=== PATIENT | male | born 2000 | race Caucasian/White ===

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

== ENCOUNTER 2021-02-11 19:09 | Emergency (ER) | payer MEDICAID ==
[~2021-02-11] VITALS: Ht 177.8 cm; Wt 88.5 kg
[2021-02-11 20:10] VITALS: BP 143/77
[2021-02-11 21:36] LABS: Basophils # (auto) 0.1 10 ^3/uL (0-0.2); Eosinophils # (auto) 0 10 ^3/uL (0-0.8); Eosinophils % (auto) 0.2 % (0.0-7.0); Hemoglobin 13.2 g/dL (13.5-17.5); Lymphocytes # (auto) 1.6 10 ^3/uL (0.4-5.4); Lymphocytes % (auto) 15.8 % (10.0-50.0); Mean Corpuscular Hemoglobin 26.2 pg (28.0-32.0); Mean Corpuscular Volume 79.3 fL (80.0-100.0); Monocytes # (auto) 0.9 10 ^3/uL (0-1.3); Monocytes % (auto) 8.6 % (0.0-12.0); Neutrophils # (auto) 7.5 10 ^3/uL (1.6-8.6); Neutrophils % (auto) 74.4 % (37.0-80.0); Red Blood Cells 5.04 10^6/uL (4.5-5.90); Red Cell Distribution Width 15.7 % (11.8-14.3)
== END 2021-02-12 05:00 | disposition home or self-care (01) ==
LOC: ER 19:09
DX: J03.90 Acute tonsillitis, unspecified (principal); J20.9 Acute bronchitis, unspecified; G89.29 Other chronic pain; M54.50 Low back pain, unspecified; Z20.822 Contact with and (suspected) exposure to COVID-19
CPT/HCPCS: 36415; 71046; 85025; 87426

== ENCOUNTER 2021-03-08 13:04 | Inpatient (IN) | payer MEDICAID ==
[~2021-03-08] VITALS: Ht 180.3 cm; Wt 84.0 kg
[2021-03-08] MEDS ORDERED: CLINDAMYCIN 900MG IV 50 ML IV ONE (15:45)
[2021-03-08] MEDS ORDERED: cefTRIAXone 1GM/50ML D5W 50 ML IV ONE (15:45)
[2021-03-08] MEDS ORDERED: VANCOMYCIN 1GM/250ML 250 ML IV ONE (16:30)
[2021-03-08 17:26] LABS: Basophils # (auto) 0.1 10 ^3/uL (0-0.2); Lymphocytes # (auto) 1.8 10 ^3/uL (0.4-5.4); Nucleated Red Blood Cells % 0.1 %
[2021-03-08 17:28] LABS: Basophils % (auto) 1.5 % (0.0-2.0); Eosinophils # (auto) 0 10 ^3/uL (0-0.8); Eosinophils % (auto) 0.5 % (0.0-7.0); Hematocrit 39.6 % (41.0-53.0); Hemoglobin 13.1 g/dL (13.5-17.5); Lymphocytes % (auto) 24.6 % (10.0-50.0); Mean Corpuscular Hemoglobin 26.2 pg (28.0-32.0); Mean Corpuscular Hgb Conc. 33.1 g/dL (32.0-36.0); Mean Corpuscular Volume 79.1 fL (80.0-100.0); Monocytes # (auto) 0.5 10 ^3/uL (0-1.3); Monocytes % (auto) 7.1 % (0.0-12.0); Neutrophils % (auto) 66.3 % (37.0-80.0); Red Blood Cells 5.01 10^6/uL (4.5-5.90); Red Cell Distribution Width 15.5 % (11.8-14.3); White Blood Cell 7.5 10^3/uL (4.4-10.8)
[2021-03-08] MEDS ORDERED: ACETAMINOPHEN/CODEINE#3 (300/30mg) TAB PO ONE (17:30)
[2021-03-08] MEDS ORDERED: ONDANSETRON ODT 4 MG TAB PO ONE (17:30)
[2021-03-08 17:43] LABS: Albumin 3.9 g/dL (3.4-5.0); Calcium 9.3 mg/dL (8.5-10.1); Potassium 3.8 mmol/L (3.5-5.1)
[2021-03-08 17:46] LABS: BUN/Creatinine Ratio 11.1; Bilirubin, Total 0.2 mg/dL (0.2-1.0); Total Protein 8.1 g/dL (6.4-8.2)
[2021-03-08 20:29] LABS: INR 1.01 (0.9-1.15); Partial Thromboplastin Time 32.5 sec (23.6-33.0)
[2021-03-08] MEDS ORDERED: ONDANSETRON HCL 4 MG/2 ML VIAL IV ONE (21:30)
[2021-03-08] MEDS ORDERED: MORPHINE SULFATE 4 MG/ML SYR/VIAL IV ONE (21:30)
[2021-03-08] MEDS ORDERED: VANCOMYCIN PER PHARMACY 0 MG IV SCH (21:45)
[2021-03-08] MEDS ORDERED: ACETAMINOPHEN 325 MG TAB PO PRN (21:45)
[2021-03-08] MEDS ORDERED: hydrALAZINE HCL 10 MG TAB PO PRN (21:45)
[2021-03-08] MEDS ORDERED: ONDANSETRON HCL 4 MG/2 ML VIAL IV PRN (21:45)
[2021-03-09] VITALS (8 sets, daily range): BP systolic 103–155; BP diastolic 41–82
[2021-03-09] MEDS: MORPHINE SULFATE INJECTION 2 MG/ML SYRG IV PRN ×2 (05:30→20:55)
[2021-03-09] MEDS ORDERED: VANCOMYCIN 1GM/250ML 250 ML IV ONE (06:00)
[2021-03-09] MEDS: HYDROcodone-ACET 5/325MG TAB PO PRN ×3 (09:00→21:51)
[2021-03-09] MEDS ORDERED: cefTRIAXone 1GM/50ML D5W 50 ML IV SCH (10:00)
[2021-03-09] MEDS: VANCOMYCIN 1GM/250ML 250 ML IV SCH ×2 (13:54→21:48)
[2021-03-10 05:00] VITALS: BP 104/62
[2021-03-10] MEDS: VANCOMYCIN 1GM/250ML 250 ML IV SCH ×3 (06:14→21:05)
[2021-03-10] MEDS ORDERED: BUPIVACAINE 0.5% MPF INJ 30ML SDV IJ ONE (06:43)
[2021-03-10] MEDS ORDERED: LIDOCAINE 1% HCL (LOCAL ANESTH.) INJ 20ML MDV ONE (06:43)
[2021-03-10] MEDS ORDERED: fentaNYL CITRATE 100 MCG/2 ML VL ONE (08:09)
[2021-03-10] MEDS ORDERED: MIDAZOLAM HCL 2MG/2ML 2ml VIAL (1mg/ml) ONE (09:29)
[2021-03-10] MEDS ORDERED: LIDOCAINE 2% (LOCAL ANESTH.) PF 5ml SDV ONE (09:29)
[2021-03-10] MEDS ORDERED: PROPOFOL 10 MG/ML 20 ML IV ONE (09:29)
[2021-03-10] MEDS ORDERED: ONDANSETRON HCL 4 MG/2 ML VIAL ONE (09:29)
[2021-03-10] MEDS ORDERED: ONDANSETRON HCL 4 MG/2 ML VIAL IV PRN (09:30)
[2021-03-10] MEDS: HYDROmorphone HCL 2 MG/ML VL IV PRN ×4 (09:35→10:05)
[2021-03-10] MEDS: MORPHINE SULFATE INJECTION 2 MG/ML SYRG IV PRN ×3 (10:26→22:01)
[2021-03-10] MEDS: CEFTRIAXONE SODIUM 2 GM in D5W 5% 50 ML IV SCH (11:11)
[2021-03-10 12:32] LABS: Urine Bacteria NONE SEEN /hpf (None Seen); Urine Blood Negative /uL (Negative); Urine Specific Gravity 1.015 (1.001-1.035); Urine WBC 2 /hpf (0 - 3)
[2021-03-10 12:41] LABS: Amphetamine Screen, Urine NEGATIVE (NEGATIVE); Barbiturate Scree,Urine NEGATIVE (NEGATIVE); Benzodiazephine Screen, Urine POSITIVE (NEGATIVE); Cannabinoid Screen, Urine NEGATIVE (NEGATIVE); Cocaine Screen, Urine NEGATIVE (NEGATIVE); Opiate Scree,Urine POSITIVE (NEGATIVE); Phencyclidine Screen, Urine NEGATIVE (NEGATIVE)
[2021-03-10 13:00] VITALS: BP 146/84
[2021-03-10] MEDS: HYDROcodone-ACET 5/325MG TAB PO PRN ×2 (13:07→19:35)
[2021-03-10] MEDS ORDERED: ACET325T10 PO (14:07)
[2021-03-10] MEDS ORDERED: HYDR1TAB97 PO (14:07)
[2021-03-10 17:00] VITALS: BP 139/85
[2021-03-10 22:00] VITALS: BP 120/73
[2021-03-11] MEDS: HYDROcodone-ACET 5/325MG TAB PO PRN ×4 (01:30→20:47)
[2021-03-11] MEDS: MORPHINE SULFATE INJECTION 2 MG/ML SYRG IV PRN ×4 (04:17→22:55)
[2021-03-11 05:00] VITALS: BP 132/64
[2021-03-11] MEDS: VANCOMYCIN 1GM/250ML 250 ML IV SCH (05:32)
[2021-03-11 08:23] VITALS: BP 111/59
[2021-03-11] MEDS: CEFTRIAXONE SODIUM 2 GM in D5W 5% 50 ML IV SCH (08:54)
[2021-03-11 12:29] VITALS: BP 120/62
[2021-03-11] MEDS ORDERED: VANCOMYCIN 1GM/250ML 250 ML IV SCH (13:00)
[2021-03-11 16:31] VITALS: BP 134/75
[2021-03-11] MEDS ORDERED: LIDOCAINE 1% (LOCAL ANESTH.) PF 5ml SDV ID ONE (18:30)
[2021-03-11 20:00] VITALS: BP 136/74
[2021-03-11] MEDS ORDERED: VANCOMYCIN 1,500 MG in D5W 5% 250 ML IV SCH (22:00)
[2021-03-11] MEDS: SODIUM CHLOR 0.9% PF (SALINE LOCK) 10ML VIAL/SYR IV SCH (22:00)
[2021-03-11] MEDS: VANCOMYCIN 1,500 MG in D5W 5% 250 ML IV SCH (22:39)
[2021-03-12 01:55] LABS: Basophils # (auto) 0.1 10 ^3/uL (0-0.2); Eosinophils # (auto) 0.1 10 ^3/uL (0-0.8); Hemoglobin 12.7 g/dL (13.5-17.5); Lymphocytes # (auto) 1.8 10 ^3/uL (0.4-5.4); Monocytes # (auto) 0.5 10 ^3/uL (0-1.3); Neutrophils # (auto) 3.8 10 ^3/uL (1.6-8.6); White Blood Cell 6.3 10^3/uL (4.4-10.8)
[2021-03-12 01:57] LABS: Basophils % (auto) 1.1 % (0.0-2.0); Eosinophils % (auto) 1.5 % (0.0-7.0); Hematocrit 39.1 % (41.0-53.0); Lymphocytes % (auto) 29.2 % (10.0-50.0); Mean Corpuscular Hemoglobin 25.6 pg (28.0-32.0); Mean Corpuscular Hgb Conc. 32.4 g/dL (32.0-36.0); Mean Corpuscular Volume 78.9 fL (80.0-100.0); Monocytes % (auto) 7.7 % (0.0-12.0); Neutrophils % (auto) 60.5 % (37.0-80.0); Nucleated Red Blood Cells % 0.1 %; Red Blood Cells 4.95 10^6/uL (4.5-5.90); Red Cell Distribution Width 15.4 % (11.8-14.3)
[2021-03-12 02:20] LABS: BUN/Creatinine Ratio 11.6; Calcium 9.4 mg/dL (8.5-10.1); Potassium 4.1 mmol/L (3.5-5.1)
[2021-03-12 05:00] VITALS: BP 139/79
[2021-03-12] MEDS: HYDROcodone-ACET 5/325MG TAB PO PRN ×2 (05:15→16:15)
[2021-03-12] MEDS: VANCOMYCIN 1,500 MG in D5W 5% 250 ML IV SCH (05:45)
[2021-03-12 09:00] VITALS: BP 127/72
[2021-03-12] MEDS: CEFTRIAXONE SODIUM 2 GM in D5W 5% 50 ML IV SCH (10:45)
[2021-03-12] MEDS: SODIUM CHLOR 0.9% PF (SALINE LOCK) 10ML VIAL/SYR IV SCH (10:45)
[2021-03-12] MEDS: MORPHINE SULFATE INJECTION 2 MG/ML SYRG IV PRN (10:47)
[2021-03-12 13:00] VITALS: BP 134/86
[2021-03-12 14:50] VITALS: BP 134/86
[2021-03-12 17:00] VITALS: BP 136/89
== END 2021-03-12 18:35 | disposition home health service (06) | DRG 305 ==
LOC: ER 13:04 → TELE 22:16 → TELE-CENTR 03-09 04:10
PROVIDERS: ADMIT Nurse Practitioner Family; ATTEND Nurse Practitioner Family
PROC: 0Y6M0ZF Detachment at Right Foot, Partial 5th Ray, Open Approach (ICD-10-PCS; principal; 2021-03-10 08:30)
DX: M86.8X7 Other osteomyelitis, ankle and foot (principal); M00.9 Pyogenic arthritis, unspecified; L97.519 Non-pressure chronic ulcer of other part of right foot with unspecified severity; F17.210 Nicotine dependence, cigarettes, uncomplicated; Z20.822 Contact with and (suspected) exposure to COVID-19; G62.9 Polyneuropathy, unspecified
CPT/HCPCS: 36415; 36569; 71045; 73700; 80048; 80053; 80202; 80307; 81001; 83036; 85025; 85610; 85652; 85730; 86141; 86431; 87040; 87070; 87075; 87077; 87081; 87186; 87205; 87426; 96365; 96367; 96375; G0378; J0696; J2001; J2250; J2405; J2704; J3490; J7060; Q0162

== ENCOUNTER 2021-03-13 14:50 | Emergency (ER) | payer MEDICAID ==
[~2021-03-13] VITALS: Ht 180.3 cm; Wt 86.2 kg
[~2021-03-13 14:50] MED LIST: ACET325T10 PO
[2021-03-13 15:33] VITALS: BP 148/88
== END 2021-03-13 16:06 | disposition home or self-care (01) ==
LOC: ER 14:52
DX: F17.210 Nicotine dependence, cigarettes, uncomplicated (principal); Z76.0 Encounter for issue of repeat prescription; Z89.421 Acquired absence of other right toe(s)